=== PATIENT | male | born 1950 | race Native Hawaiian/Other Pacific Islander ===

== ENCOUNTER 2016-08-30 08:25 | Outpatient (CLI) | payer OTHER, MEDICARE ==
[2016-08-30 08:58] LABS: PLATELET COUNT 217 K/uL (142-355)
== END 2016-08-30 09:30 | disposition home or self-care (01) ==
LOC: LABW 08:25
PROVIDERS: Internal Medicine Nephrology
DX: I12.9 Hypertensive chronic kidney disease with stage 1 through stage 4 chronic kidney disease, or unspecified chronic kidney disease (principal); N18.4 Chronic kidney disease, stage 4 (severe)
CPT/HCPCS: 36415; 80053; 82306; 82570; 82575; 83735; 83970; 84100; 84156; 85027

== ENCOUNTER 2018-04-04 12:22 | Outpatient (CLI) | payer OTHER | END 2018-04-04 20:30 | disposition home or self-care (01) | LOC: RESP 12:22 | DX: Z01.818 Encounter for other preprocedural examination (principal); N18.6 End stage renal disease | CPT/HCPCS: 93306 ==

== ENCOUNTER 2018-10-25 15:09 | Emergency (ER) | payer OTHER, MEDICARE ==
[~2018-10-25] VITALS: Ht 172.7 cm; Wt 70.8 kg
[2018-10-25 15:10] VITALS: TEMP 100
[2018-10-25] MEDS ORDERED: METOPROLOL25 M1 PO (15:40)
[2018-10-25] MEDS ORDERED: LISI5TAB10 PO (15:40)
[2018-10-25] MEDS ORDERED: ALLO100T22 PO (15:41)
[2018-10-25] MEDS ORDERED: CALCITRIOL0.25 MCG PO (15:41)
[2018-10-25 15:43] LABS: PLATELET COUNT 159 K/uL (142-355)
[2018-10-25 15:54] LABS: SODIUM 140 mmol/L (136-145)
[2018-10-25 16:11] LABS: PARTIAL THROMBOPLASTIN TIME 24.7 SECONDS (24.5-33.6)
[2018-10-25 17:15] VITALS: BP 108/75
== END 2018-10-25 17:15 | disposition home or self-care (01) ==
LOC: ED 15:09
PROVIDERS: Emergency Medicine
DX: R07.89 Other chest pain (principal); Z99.2 Dependence on renal dialysis
CPT/HCPCS: 80053; 82550; 82553; 84484; 85027; 85610; 85730; 93005; 99284; J2270

== ENCOUNTER 2019-09-22 07:51 | Emergency (ER) | payer OTHER, MEDICARE ==
[~2019-09-22] VITALS: Ht 172.7 cm; Wt 70.3 kg
[~2019-09-22 07:51] MED LIST: ALLO100T22 PO; CALCITRIOL0.25 MCG PO; LISI5TAB10 PO; METOPROLOL25 M1 PO
[2019-09-22 08:49] VITALS: BP 158/63; TEMP 98
== END 2019-09-22 08:57 | disposition home or self-care (01) ==
LOC: ED 07:51
PROC: 05QY0ZZ Repair Upper Vein, Open Approach (ICD-10-PCS; principal; 2019-09-22)
DX: T82.838A Hemorrhage due to vascular prosthetic devices, implants and grafts, initial encounter (principal)
CPT/HCPCS: 99282; 99283